=== PATIENT | male | born 1995 | race Caucasian/White ===

== ENCOUNTER 2023-08-23 00:12 | Emergency (ER) | payer OTHER ==
--- NOTE | 2023-08-23 03:07 | ED Physician Documentation ---
History of Present Illness - Stated complaint Stated Complaint: BAT EXPOSURE - Chief complaint Chief Complaint: Exposure - History obtained from History obtained from: Patient - Additonal information Additional information: HPI from patient. Patient noted a bat flying around his house earlier this evening. Before flying off, the bat flew at the patient, striking patient in the back of his head. Adriana lanier did not feel any bite nor scratch, does not have any pain at the site of contact. PD PAST MEDICAL HISTORY - Past Medical History Past Medical History: No - Past Surgical History Past Surgical History: No - Allergies Allergies/Adverse Reactions: Allergies Allergy/AdvReac Type Severity Reaction Status Date / Time No Known Drug Allergies Allergy Verified 08/23/23 00:26 - Social History Does the pt smoke?: No Smoking Status: Never smoker PD ED PE NORMAL - Vitals Vital signs reviewed: Yes - General General: Alert and oriented X 3, No acute distress, Well developed/nourished - HEENT HEENT: Atraumatic, Other (no scalp lesions including no evidence of bite nor abrasion) Results - Vitals Vitals: Vital Signs - 24 hr 08/23/23 08/23/23 00:23 04:05 Temperature 36.0 C L Heart Rate 64 72 Respiratory 16 16 Rate Blood Pressure 114/71 118/73 O2 Saturation 100 99 Oxygen O2 Source Room air PD Medical Decision Making - ED course Complexity details: considered differential, d/w patient ED course: The incident as described, and lack of findings on exam, represent a very low risk of rabies exposure. However, utilizing [facility] as a resource, indication for consideration of rabies post-exposure regimen (RIG and vaccine series) would include physical contact with a bat without high confidence that there was no mucous membrane exposure, bite, or scratch. While there is no mucous membrane exposure nor reason to suspect bite, it remains possible that the could have been a scratch that did not result in a visible abrasion (comparable situation would be allergy scratch tests which introduce potential allergens without leaving visible frost in most cases). Although rabies is exceedingly rare and the exposure is low risk, this has to be weighed against a mortality rate that approaches 100% while RIG / vaccination series is highly effective in preventing the disease in post-exposure setting. In summary, I recommended to patient that he receive the RIG and rabies vaccination series and he agrees with this approach. Given RIG and rabavert in ED, instructed to contact PCP in the morning so that the rest of the vaccination series can be undertaken. Departure - Departure Disposition: 01 Home, Self Care Clinical Impression: Exposure to bat without known bite Condition: Good Instructions: Rabies Vaccine suspension for injection, Rabies Immune Globulin human RIG solution for injection, Rabies Comments: As we discussed, because it cannot be said with confidence that you were not scratched by the bat that struck you in the back of your head, you were given two injections in the emergency department to help prevent rabies. Based on your description of exposure, having contracted rabies is very unlikely; however, this has to be weighed against the inevitable fatality of rabies if you were indeed scratched and exposed to the rabies virus. Another part of the equation is that the rabies vaccination is extremely effective in preventing rabies after being exposed. You were given one injection (rabies immunoglobulin) of antibodies against the rabies virus, and a different injection that will stimulate your immune system to form its own antibodies as the first injection's antibodies wear off. You will need a few more injections of this second injection (rabies vaccination). The other injections of the rabies vaccine will need to take place on days 3, 7, and 14 (today is considered day 0, August 22). In order to schedule these other 3 injections, you need to contact your primary care provider later today when the office is next open. They should be able to arrange for the injections to happen in the [facility] of [facility]. Forms: PCP List Discharge Date/Time: 08/23/23 04:05
[2023-08-23] MEDS: RABIES VACCINE 2.5 UNIT SYRINGE IM ONE (03:41)
[2023-08-23] MEDS: RABIES IMMUNE GLOBULIN 300 UNITS/2 ML IM STA (03:42)
[2023-08-23 04:11] VITALS: BP 118/73; O2SAT 99
== END 2023-08-23 04:05 | disposition home or self-care (01) ==
LOC: ED 00:12
DX: Z20.3 Contact with and (suspected) exposure to rabies (principal); Z23 Encounter for immunization
CPT/HCPCS: 90471; 96372; 99282; 99283